=== PATIENT | male | born 1970 | race Caucasian/White ===

== ENCOUNTER → 2019-10-03 | Day surgery (SDC) | payer OTHER ==
[~2019-10-03] VITALS: Ht 167.6 cm; Wt 122.5 kg
[~2019-10-03] MED LIST: KEPPRA500 MG PO; LACTULOSE; LACTULOSE10 GM/152 PO; PAXIL10 MG PO
[2019-10-03 08:41] VITALS: BP 127/86
[2019-10-03 14:04] VITALS: BP 136/83
== END | disposition home or self-care (01) ==
LOC: GI 08:25 → OR 12:00 → GI 12:00
DX: K70.30 Alcoholic cirrhosis of liver without ascites (principal); K29.50 Unspecified chronic gastritis without bleeding; K29.80 Duodenitis without bleeding; E66.9 Obesity, unspecified; Z98.890 Other specified postprocedural states; Z68.41 Body mass index [BMI] 40.0-44.9, adult; Z79.899 Other long term (current) drug therapy
CPT/HCPCS: 43235; 87081; J1200; J1610; J2250; J2310; J3010; J3490